=== PATIENT | male | born 1995 | race Caucasian/White ===

== ENCOUNTER 2016-06-23 16:24 | Emergency (ER) | payer OTHER ==
[~2016-06-23] VITALS: Ht 175.3 cm; Wt 72.0 kg
[~2016-06-23 16:24] MED LIST: ALBUAER2 INH; EPP3/2 IM; VNTHFA/IN INH
[2016-06-23 16:29] VITALS: TEMP 36.8; Ht 175.3 cm; Wt 72.0 kg
[2016-06-23 18:19] VITALS: BP 141/85; PULSE 69; O2SAT 99
--- NOTE | 2016-06-23 18:22 | DIAGNOSTIC IMAGING REPORT ---
LEFT SHOULDER MIN 2 VIEWS ROUTINE CLINICAL HISTORY: Left shoulder pain. No known injury. COMPARISON: None FINDINGS: Alignment of the left shoulder is anatomic. No fracture or osseous lesion is present. Joint spaces are preserved. No fracture is identified. IMPRESSION: Unremarkable left shoulder radiographs. Electronically signed by: Bhavesh Ring M.D. 06/23/2016 6:21 PM Dictated Date/Time: 06/23/2016 6:20 PM
--- NOTE | 2016-06-23 18:23 | DIAGNOSTIC IMAGING REPORT ---
CHEST 2 VIEWS ROUTINE CLINICAL HISTORY: Left shoulder pain. No known injury. COMPARISON STUDY: Chest radiograph December 06, 2015. FINDINGS: Lung volumes are normal. Lungs are clear. There is no pneumothorax or pleural effusion. Cardiac size is normal. Mediastinal contours are normal. There is no evidence of pulmonary edema. IMPRESSION: No acute cardiopulmonary findings. Electronically signed by: Bhavesh Ring M.D. 06/23/2016 6:21 PM Dictated Date/Time: 06/23/2016 6:21 PM
[2016-06-23] MEDS ORDERED: DICL75TA2 PO (18:39)
--- NOTE | 2016-06-23 22:57 | EMERGENCY ROOM VISIT NOTE ---
History First contact with patient: 16:44 Chief Complaint: SHOULDER PAIN Stated Complaint: LF SHOULDER PAIN History of Present Illness The patient is a 20 year old male who presents to the Emergency Room with complaints of left shoulder pain for the past 2-3 days. The patient does not recall a distinct injury or trauma to explain his symptoms. He does have range of motion of the shoulder and no numbness or paresthesias. At times he will have difficulty with lifting above the level of his shoulders. The patient has not had similar symptoms in the past. He does not have headache, neck pain, chest pain, chest tightness, shortness of breath, numbness, or paresthesias. He rates his discomfort an 8/10 and has not taken anything [id number] for his discomfort. Review of Systems More than 10 systems were reviewed and otherwise negative with the exception of history of present illness. Past Medical/Surgical History Medical Problems: (1) Asthma (2) Bronchitis (3) Hernia repair Family History No pertinent family history Social History Smoking Status: Never Smoker Alcohol Use: none Marital Status: single Housing Status: lives with family Occupation Status: employed Current/Historical Medications Scheduled Diclofenac Sodium (Voltaren), 75 MG PO BID Scheduled PRN Albuterol Hfa (Ventolin Hfa), 2-4 PUFFS INH Q6H PRN for Asthma Symptoms Cetirizine (Zyrtec), 10 MG PO DAILY PRN for Allergy Symptoms Epinephrine (Epipen), 0.3 MG IM UD PRN for ALLERGIC REACTION Allergies Coded Allergies: No Known Allergies (Unverified , 02/01/06) Physical Exam Vital Signs Date Time Temp Pulse Resp B/P Pulse Ox O2 Delivery O2 Flow Rate FiO2 06/23/16 18:19 69 16 141/85 99 06/23/16 16:29 36.8 100 17 175/82 100 Room Air Pain Rating (0-10): 8.0 Physical Exam VITALS: Vitals are noted on the nurse's note and reviewed by myself. Vital signs stable. GENERAL: Well-developed, well-nourished, white male, who is in no acute distress and resting comfortably. Patient is cooperative with the examination. HEAD: Normocephalic atraumatic. NECK: Supple without nuchal rigidity. No lymphadenopathy. No thyromegaly. Cervical spine is nontender. HEART: Regular rate and rhythm without murmurs gallops or rubs. LUNGS: Clear to auscultation bilaterally without wheezes, rales or rhonchi. No retractions or accessory muscle use. ABDOMEN: Positive normal bowel sounds x 4. Soft, nontender, without masses or organomegaly. No guarding or rebound tenderness. MUSCULOSKELETAL: No muscle atrophy, erythema, or edema noted. Overall there is full range of motion of the left shoulder. There is tenderness with empty can testing. The patient is able to internally and externally rotate against resistance. There is mild supraspinatus distribution tenderness. No numbness or paresthesias. NEURO: Patient was alert and oriented to person place and time. CN II through XII grossly intact. Deep tendon reflexes 2+ throughout. Medical Decision & Procedures ER Provider Diagnostic Interpretation: LEFT SHOULDER MIN 2 VIEWS ROUTINE CLINICAL HISTORY: Left shoulder pain. No known injury. COMPARISON: None FINDINGS: Alignment of the left shoulder is anatomic. No fracture or osseous lesion is present. Joint spaces are preserved. No fracture is identified. IMPRESSION: Unremarkable left shoulder radiographs. CHEST 2 VIEWS ROUTINE CLINICAL HISTORY: Left shoulder pain. No known injury. COMPARISON STUDY: Chest radiograph December 06, 2015. FINDINGS: Lung volumes are normal. Lungs are clear. There is no pneumothorax or pleural effusion. Cardiac size is normal. Mediastinal contours are normal. There is no evidence of pulmonary edema. IMPRESSION: No acute cardiopulmonary findings. ED Course Physical exam and history were performed. Nursing notes and EMR were reviewed. Patient appears to have atraumatic left shoulder pain that started a few days ago. X-rays of the shoulder and chest were performed. The patient does not appear to have significant bony abnormality or free air under the diaphragm. The patient was placed in an arm sling for comfort as I suspect his symptoms are musculoskeletal in nature. The patient will be given a course of diclofenac and instructions to follow with orthopedics for ongoing care. Patient was otherwise invited back to the ER with any new, worsening, or concerning symptoms. The chart was completed utilizing [employer] Voice Recognition Software. Grammatical errors, random word insertions, pronoun errors, and incomplete sentences are an occasional consequence of this system due to software limitations, ambient noise, and hardware issues. Any formal questions or concerns about the content, text, or information contained within the body of this dictation should be directly addressed to the provider for clarification. . Medical Decision Differential diagnosis includes, but is not limited to: Sprain, strain, fracture , dislocation, subluxation, contusion, abdominal process, rotator cuff injury, and others Impression Primary Impression: Left shoulder pain Departure Information Dispostion Home / Self-Care Condition GOOD Prescriptions Diclofenac Sodium (VOLTAREN) 75 Mg Tab 75 MG PO BID for 10 Days, #20 TAB Prov: Kam Mitchell PA-C 06/23/16 Referrals Keith Chicas M.D. Forms HOME CARE DOCUMENTATION FORM, IMPORTANT VISIT INFORMATION Patient Instructions My [facility] Additional Instructions You were seen and evaluated today on an emergency basis only. This is not a substitute for, or an effort to provide, complete comprehensive medical care. It is not possible to recognize and treat all injuries or illnesses in a single emergency department visit. For this reason it is recommended that you followup with [facility], Dr. Chicas's office, for ongoing care and evaluation this week. Take diclofenac 75 mg twice daily with food for pain. Wear your arm sling for comfort. Remove your arm several times daily and practice range of motion. You are welcome to return to the emergency department anytime with new, worsening, or concerning symptoms.
== END 2016-06-23 18:45 | disposition home or self-care (01) ==
LOC: C.EDB 16:25 → C.EDD 18:45
DX: M25.512 Pain in left shoulder (principal); J45.909 Unspecified asthma, uncomplicated

== ENCOUNTER 2016-11-12 14:36 | Emergency (ER) | payer OTHER ==
[~2016-11-12] VITALS: Ht 175.3 cm; Wt 70.9 kg
[2016-11-12 14:39] VITALS: TEMP 36.6; Ht 175.3 cm; Wt 70.9 kg
[2016-11-12] MEDS ORDERED: CETI10TA84 PO (14:49)
[2016-11-12] MEDS ORDERED: ONDANSETRON INJ 2 MG/ML 2 ML VIAL IV STA (14:57)
[2016-11-12] MEDS ORDERED: MoRPHine SULFATE 4 MG/ML 1 ML CARP\\VIAL IV STA (14:57)
[2016-11-12] MEDS ORDERED: SODIUM CHLORIDE 0.9% 1000ML 1,000 ML IV STA (14:57)
[2016-11-12] MEDS ORDERED: DIPH1TAB PO (15:12)
[2016-11-12 15:29] LABS: BASO % 0.2 %; BASO ABS # 0.02 K/uL (0-0.2); COMPLETE YES; EOS % 2.6 %; HEMATOCRIT 47.9 % (42-52); IG% 0.2 %; LYMPH % 14.1 %; MEAN CELL VOLUME 89.7 fL (80-100); MEAN CORPUSCULAR HEMOGLOBIN 31.5 pg (25-34); MEAN CORPUSCULAR HGB CONC 35.1 g/dl (32-36); MEAN PLATELET VOLUME 11.9 fL (7.4-10.4); MONO % 7.9 %; PLATELET COUNT 182 K/uL (130-400); RED BLOOD COUNT 5.34 M/uL (4.7-6.1); WHITE BLOOD COUNT 8.49 K/uL (4.8-10.8)
[2016-11-12 15:31] LABS: URINE APPEARANCE CLEAR (CLEAR); URINE BILIRUBIN NEG (NEG); URINE COLOR YELLOW; URINE NITRITE NEG (NEG); URINE SPECIFIC GRAVITY 1.023 (1.000-1.030); UROBILINOGEN NEG (NEG)
[2016-11-12 15:33] LABS: MANUAL MICROSCOPIC REQUIRED? NO; REVIEW REQ? NO
[2016-11-12 15:56] LABS: BUN/CREATININE RATIO 12.4 (10-20); CALCIUM 9.5 mg/dl (8.5-10.1); CREATININE 1.2 mg/dl (0.60-1.40); POTASSIUM 4.2 mmol/L (3.5-5.1)
[2016-11-12] MEDS: MoRPHine SULFATE 4 MG/ML 1 ML CARP\\VIAL IV PRN ×2 (15:58→17:38)
[2016-11-12] MEDS ORDERED: OPTIRAY 320 IV PRN (16:00)
--- NOTE | 2016-11-12 17:36 | DIAGNOSTIC IMAGING REPORT ---
ABD/PELVIS IV AND ORAL CONT CT DOSE: 265.01 mGy.cm HISTORY: Pain LLQ ABDOMINAL PAIN TECHNIQUE: Multiaxial CT images of the abdomen and pelvis were performed following the use of intravenous and oral contrast. COMPARISON STUDY: 12/06/2015 FINDINGS: Lung bases are clear. Liver spleen and pancreas enhance uniformly. Kidneys are negative for hydronephrosis. Moderate wall thickening of the descending colon as well as proximal to mid sigmoid. The previously described extraluminal mass is no longer present. Mild pericolonic infiltrative change. This appearance is suggestive of acute diverticulitis. There is no evidence for abscess collection or obstructive change. Bowel pattern overall is unremarkable. Bladder is midline. IMPRESSION: 1. Mild acute sigmoid diverticulitis. 2. Mild pericolonic infiltrative change. 3. No evidence for abscess collection or obstruction. The above report was generated using voice recognition software. It may contain grammatical, syntax or spelling errors. Electronically signed by: Ole Michel M.D. 11/12/2016 5:35 PM Dictated Date/Time: 11/12/2016 5:32 PM
[2016-11-12] MEDS ORDERED: VNTHFA/IN INH (17:44)
[2016-11-12] MEDS ORDERED: EPP3/2 IM (17:44)
[2016-11-12 17:46] VITALS: BP 137/87; PULSE 61; O2SAT 98
[2016-11-12] MEDS ORDERED: METR-163 PO (17:50)
[2016-11-12] MEDS ORDERED: CIPR-255 PO (17:50)
[2016-11-12] MEDS ORDERED: OXYC1TAB3 PO (17:50)
--- NOTE | 2016-11-12 20:26 | EMERGENCY ROOM VISIT NOTE ---
History First contact with patient: 14:46 Chief Complaint: ABDOMINAL PAIN Stated Complaint: STOMACH PAIN Nursing Triage Summary: Pt reports hx of diverticulitis. Pt reports lower abd pain since waking this morning. Diarrhea. Feels hot/cold. History of Present Illness The patient is a 21 year old male who presents to the Emergency Room with complaints of worsening left lower quadrant abdominal pain since awakening this morning. The patient also reports a soft bowel movement without blood or mucus. Pain does not radiate into the back or upper abdominal region. The patient denies any urinary symptoms. The patient reports that he was inpatient at [place] last November for diverticulitis. Colonoscopy was performed, and the patient required no additional bowel surgery. The patient currently rates his discomfort an 8 out of 10. Review of Systems HEENT: Denies dizziness, visual problems, hearing loss, tinnitus. Denies difficulty swallowing or oral lesions. PULMONARY: Denies cough, shortness of breath, sputum production or hemoptysis. CARDIOVASCULAR: Denies chest pain, palpitations, dyspnea on exertion, orthopnea or peripheral edema. GASTROINTESTINAL: See history of present illness. GENITOURINARY: Denies dysuria, frequency, urgency or nocturia. NEUROLOGIC: Denies history of epilepsy, CVA, TIA or chronic headaches. MUSCULOSKELETAL: Denies history of joint tenderness/swelling. SKIN: Denies rashes or lesions. PSYCHIATRIC: Denies history of depression or mental illness. ENDOCRINE: Denies history of diabetes or thyroid disorders. Past Medical/Surgical History Medical Problems: (1) Asthma (2) Bronchitis (3) Hernia repair Family History No pertinent family history Social History Smoking Status: Current Every Day Smoker Alcohol Use: none Marital Status: single Housing Status: lives with family Occupation Status: employed Current/Historical Medications Scheduled Ciprofloxacin Hcl (Cipro), 500 MG PO BID Diphenhydramine Hcl (Benadryl Allergy), 2-3 TAB PO PRN UD Metronidazole (Flagyl), 500 MG PO TID Scheduled PRN Albuterol Hfa (Ventolin Hfa), 2-4 PUFFS INH Q6H PRN for Asthma Symptoms Cetirizine (Zyrtec), 10 MG PO DAILY PRN for Allergy Symptoms Epinephrine (Epipen), 0.3 MG IM UD PRN for ALLERGIC REACTION Oxycodone Ir (Roxicodone Ir), 1-2 TAB PO Q4H PRN for Pain Physical Exam Vital Signs Date Time Temp Pulse Resp B/P (MAP) Pulse Ox O2 Delivery O2 Flow Rate FiO2 11/12/16 17:46 61 16 137/87 98 Room Air 11/12/16 15:54 61 16 144/81 97 Room Air 11/12/16 14:39 36.6 92 20 133/94 97 Room Air Physical Exam CONSTITUTIONAL: Healthy and well nourished. Alert and oriented X 3 with positive affect. Patient appears in moderate discomfort from pain. HEENT: Normocephalic, atraumatic. Pupils equal, round and reactive. No scleral icterus or conjunctival injection/pallor. NECK: Full active range of motion without discomfort. RESPIRATORY: Clear to auscultation bilaterally with no wheezing, crackles, rhonchi or stridor. CARDIOVASCULAR: Regular rate and rhythm with no murmurs, rubs or gallops. GASTROINTESTINAL: Bowel sounds present in all quadrants. Should has significant left lower quadrant tenderness to palpation without rigidity, guarding or rebound. Negative CVA tenderness. MUSCULOSKELETAL: Full range of motion of all joints without discomfort. INTEGUMENTARY: No rash or other significant dermatologic conditions noted. HEMATOLOGIC: No ecchymosis or petechiae. NEUROLOGIC: No focal neurologic deficits noted. Medical Decision & Procedures ER Provider Diagnostic Interpretation: Enhanced CT of the abdomen and pelvis shows a mild diverticulitis without evidence for perforation or abscess formation. Radiologist report is as follows : ABD/PELVIS IV AND ORAL CONT CT DOSE: 265.01 mGy.cm HISTORY: Pain LLQ ABDOMINAL PAIN TECHNIQUE: Multiaxial CT images of the abdomen and pelvis were performed following the use of intravenous and oral contrast. COMPARISON STUDY: 12/06/2015 FINDINGS: Lung bases are clear. Liver spleen and pancreas enhance uniformly. Kidneys are negative for hydronephrosis. Moderate wall thickening of the descending colon as well as proximal to mid sigmoid. The previously described extraluminal mass is no longer present. Mild pericolonic infiltrative change. This appearance is suggestive of acute diverticulitis. There is no evidence for abscess collection or obstructive change. Bowel pattern overall is unremarkable. Bladder is midline. IMPRESSION: 1. Mild acute sigmoid diverticulitis. 2. Mild pericolonic infiltrative change. 3. No evidence for abscess collection or obstruction. Laboratory Results 11/12/16 15:15 Red Blood Count 5.34, Mean Corpuscular Volume 89.7, Mean Corpuscular Hemoglobin 31.5, Mean Corpuscular Hemoglobin Concent 35.1, Mean Platelet Volume 11.9, Neutrophils (%) (Auto) 75.0, Lymphocytes (%) (Auto) 14.1, Monocytes (%) (Auto) 7.9, Eosinophils (%) (Auto) 2.6, Basophils (%) (Auto) 0.2, Neutrophils # (Auto) 6.36, Lymphocytes # (Auto) 1.20, Monocytes # (Auto) 0.67, Eosinophils # (Auto) 0.22, Basophils # (Auto) 0.02 11/12/16 15:15 Test 11/12/16 15:10 11/12/16 15:15 Urine Color YELLOW Urine Appearance CLEAR (CLEAR) Urine pH 5.0 (4.5-7.5) Urine Specific [place] 1.023 (1.000-1.030) Urine Protein NEG (NEG) Urine Glucose (UA) NEG (NEG) Urine Ketones NEG (NEG) Urine Occult Blood NEG (NEG) Urine Nitrite NEG (NEG) Urine Bilirubin NEG (NEG) Urine Urobilinogen NEG (NEG) Urine Leukocyte Esterase NEG (NEG) White Blood Count 8.49 K/uL (4.8-10.8) Red Blood Count 5.34 M/uL (4.7-6.1) Hemoglobin 16.8 g/dL (14.0-18.0) Hematocrit 47.9 % (42-52) Mean Corpuscular Volume 89.7 fL (80-100) Mean Corpuscular Hemoglobin 31.5 pg (25-34) Mean Corpuscular Hemoglobin Concent 35.1 g/dl (32-36) Platelet Count 182 K/uL (130-400) Mean Platelet Volume 11.9 fL (7.4-10.4) Neutrophils (%) (Auto) 75.0 % Lymphocytes (%) (Auto) 14.1 % Monocytes (%) (Auto) 7.9 % Eosinophils (%) (Auto) 2.6 % Basophils (%) (Auto) 0.2 % Neutrophils # (Auto) 6.36 K/uL (1.4-6.5) Lymphocytes # (Auto) 1.20 K/uL (1.2-3.4) Monocytes # (Auto) 0.67 K/uL (0.11-0.59) Eosinophils # (Auto) 0.22 K/uL (0-0.5) Basophils # (Auto) 0.02 K/uL (0-0.2) RDW Standard Deviation 41.4 fL (36.4-46.3) RDW Coefficient of Variation 12.7 % (11.5-14.5) Immature Granulocyte % (Auto) 0.2 % Immature Granulocyte # (Auto) 0.02 K/uL (0.00-0.02) Anion Gap 6.0 mmol/L (3-11) Est Creatinine Clear Calc Drug Dose 95.8 ml/min Estimated GFR () 98.2 Estimated GFR (Non- 84.7 BUN/Creatinine Ratio 12.4 (10-20) Calcium Level 9.5 mg/dl (8.5-10.1) Total Bilirubin 0.8 mg/dl (0.2-1) Direct Bilirubin 0.2 mg/dl (0-0.2) Aspartate Amino Transf (AST/SGOT) 17 U/L (15-37) Alanine Aminotransferase (ALT/SGPT) 20 U/L (12-78) Alkaline Phosphatase 72 U/L (45-117) Total Protein 7.6 gm/dl (6.4-8.2) Albumin 4.4 gm/dl (3.4-5.0) Lipase 92 U/L (73-393) The above labs were reviewed and were grossly normal. Medications Administered Medications (Trade) Dose Ordered Sig/Shirin Route Start Time Stop Time Status Last Admin Dose Admin Morphine Sulfate (MoRPHine SULFATE INJ) 4 mg Q30M PRN IV 11/12/16 15:00 11/12/16 18:31 DC 11/12/16 17:38 4 MG Sodium Chloride 1,000 ml @ 0 mls/hr Q0M STAT IV 11/12/16 14:57 11/12/16 15:01 DC 11/12/16 15:13 999 MLS/HR Ondansetron HCl (Zofran Inj) 4 mg NOW STAT IV 11/12/16 14:57 11/12/16 15:01 DC 11/12/16 15:13 4 MG Morphine Sulfate (MoRPHine SULFATE INJ) 4 mg NOW STAT IV 11/12/16 14:57 11/12/16 15:01 DC 11/12/16 15:14 4 MG Procedure 1. IV hydration: The patient was administered a liter normal saline bolus 2. IV medications: The patient was initially administered morphine 4 mg and Zofran 4 mg IVP. The patient was administered an additional morphine 4 mg IVP prior to CT scan, and an additional morphine 4 mg IVP prior to discharge. ED Course Patient history and physical exam were performed. Nurse's notes were reviewed. Vital signs were reviewed. The patient is afebrile. Blood pressure is 133/ 94. The patient appears in moderate discomfort from pain, and does have notable tenderness to palpation in the left lower quadrant region. The access was established, and labs were drawn. The patient was hydrated with normal saline, and received IV analgesics and antiemetics as discussed in the previous Procedure section. Review of labs shows no significant abnormalities. Enhanced CT of the abdomen and pelvis shows a mild diverticulitis. The patient was advised of his imaging studies. He was encouraged to follow-up with his [facility] for further reevaluation and management. The patient reports that he was referred to a local [facility], but never made his appointment after his [place] evaluation. The patient was provided contact information for the local [facility] gastroenterology office. The patient was provided prescriptions for Cipro, Flagyl and OxyIR. No drinking alcohol while taking Flagyl or OxyIR. The patient was instructed to return to the emergency department for any progressively worsening pain, vomiting or fever. The patient was happy with plan of care, voice understanding of all discharge instructions, and rated his discomfort a 4 out of 10 at the time of discharge. He was administered 3 total doses of morphine 4 mg IVP, with his last dose just prior to discharge. Medical Decision Patient presents with complaint of a left lower quadrant abdominal pain. The patient does have a recent history of diverticulitis, and has CT evidence again today for a mild sigmoid diverticulitis. He was no evidence for abscess formation or perforation on CT. I do not suspect peritonitis, testicular or prostate etiologies. Impression Primary Impression: Sigmoid diverticulitis Departure Information Prescriptions Oxycodone Ir (Roxicodone Ir) 5 Mg Tab 1-2 TAB PO Q4H Y for Pain, #24 TAB For Initial Treatment Prov: Jorje Frazier PA 11/12/16 Metronidazole (Flagyl) 500 Mg Tab 500 MG PO TID for Pain for 10 Days, #30 TAB For Initial Treatment Prov: Jorje Frazier PA 11/12/16 Ciprofloxacin Hcl (CIPRO) 500 Mg Tab 500 MG PO BID for 10 Days, #20 TAB Prov: Jorje Frazier PA 11/12/16 Referrals Pro,Johan Zhao M.D. (PCP) Patient Instructions [facility]
== END 2016-11-12 18:01 | disposition home or self-care (01) ==
LOC: C.EDB 14:38 → C.EDC 18:01
DX: K57.32 Diverticulitis of large intestine without perforation or abscess without bleeding (principal); J45.909 Unspecified asthma, uncomplicated; F17.210 Nicotine dependence, cigarettes, uncomplicated; Z79.899 Other long term (current) drug therapy